=== PATIENT | female | born 1990 | race African-American/Black ===

== ENCOUNTER 2016-07-29 11:40 | Emergency (ER) | payer OTHER ==
[~2016-07-29] VITALS: Ht 172.7 cm; Wt 106.0 kg
[2016-07-29 11:43] VITALS: BP 139/91
== END 2016-07-30 14:29 | disposition left against medical advice (07) ==
LOC: ER 15:16
DX: R51 Headache (principal); Z53.21 Procedure and treatment not carried out due to patient leaving prior to being seen by health care provider

== ENCOUNTER 2017-05-05 09:03 | Emergency (ER) | payer MEDICAID, OTHER ==
[~2017-05-05] VITALS: Ht 172.7 cm; Wt 113.0 kg
[2017-05-05 10:08] LABS: CLARITY URINE CLEAR (CLEAR); COLOR URINE YELLOW (YELLOW); KETONES URINE NEGATIVE (NEGATIVE); LEUKOCYTE ESTERASE URINE 1+ (NEGATIVE); NITRITE URINE POSITIVE (NEGATIVE); OCCULT BLOOD URINE 2+ (NEGATIVE); PROTEIN URINE 2+ (NEGATIVE); SPECIFIC GRAVITY URINE 1.013 (1.005-1.030); UROBILINOGEN URINE 0.2 E.U./dL (0.2-1.0)
[2017-05-05] MEDS ORDERED: KETOROLAC 60MG/2ML VIAL IM ONE (10:15)
[2017-05-05] MEDS ORDERED: CEFTRIAXONE SODIUM 1 G/VIAL IM ONE (12:30)
[2017-05-05 13:01] VITALS: BP 126/90
== END 2017-05-05 13:04 | disposition home or self-care (01) ==
LOC: ER 09:32
DX: N12 Tubulo-interstitial nephritis, not specified as acute or chronic (principal); F12.10 Cannabis abuse, uncomplicated; Z87.891 Personal history of nicotine dependence
CPT/HCPCS: 81003; 81025; 87077; 87086; 87186; 96372; 99284; J0696; J1885; Z7610